=== PATIENT | female | born 1990 | race African-American/Black ===

== ENCOUNTER 2020-08-16 14:58 | Emergency (ER) | payer SELFPAY ==
[2020-08-16] MEDS ORDERED: Bupivacaine 0.25% HCL 30 ML VIAL ONE (16:57)
== END 2020-08-16 17:19 | disposition home or self-care (01) ==
LOC: CSHERS 14:58
DX: K02.9 Dental caries, unspecified (principal); F17.210 Nicotine dependence, cigarettes, uncomplicated
CPT/HCPCS: 64400; S0020

== ENCOUNTER 2021-04-26 18:27 | Emergency (ER) | payer SELFPAY ==
[2021-04-26] MEDS ORDERED: diphenhydrAMINE 50 MG/ML VIAL ONE (19:15)
[2021-04-26] MEDS ORDERED: Ketorolac Tromethamine 30 MG/ML VIAL ONE (19:15)
[2021-04-26] MEDS ORDERED: Metoclopramide HCl 10 MG/2 ML VIAL ONE (19:15)
[2021-04-26 19:28] LABS: Hemoglobin 12.1 g/dL (12.0-15.5); Mean Corpuscular HGB CONC 33.3 g/dL (32.0-36.0); Mean Corpuscular Hemoglobin 33.3 pg (27.0-33.0); Mean Platelet Volume 8.8 fl (7.4-10.4); Platelet Count 251 10x3/uL (150-450); RBC Distribution Width 11.5 % (11.5-14.5); Red Blood Cell (RBC) Count 3.63 10x6/uL (3.90-5.03); White Blood Cell (WBC) Count 5.6 10x3/uL (3.5-10.5)
[2021-04-26 19:35] LABS: BHCG - Serum Negative (NEGATIVE); Pregs Control Background? CLEAR/WHITE (CLR/WHITE); Pregs Control Bar Appear? YES (CONTROL BAR)
[2021-04-26 19:41] LABS: ALT (SGPT) 8 U/L (8-55); AST (SGOT) 17 U/L (5-34); Albumin 4.2 g/dL (3.5-5.0); Alkaline Phosphatase 54 U/L (40-110); Anion Gap 11 mmol/L (10-20); BUN (Urea Nitrogen) 11 mg/dL (7.0-18.7); Bilirubin, Total 0.3 mg/dL (0.2-1.2); Calc. Creatinine Clearance 0 mL/min (70-130); Calcium 9.3 mg/dL (7.8-10.44); Carbon Dioxide 25 mmol/L (22-29); Chloride 105 mmol/L (98-107); Glucose 88 mg/dL (70-105); Potassium 3.7 mmol/L (3.5-5.1); Protein, Total 7.2 g/dL (6.0-8.3); Sodium 137 mmol/L (136-145)
[2021-04-26 19:50] LABS: Band 4 % (5-11); Eosinophils 3 % (0-10); Lymphocytes 38 % (21-51); Monocytes 8 % (0-10); Reactive Lymphocytes 10 % (0-10)
[2021-04-26 19:51] LABS: Neutrophil 36 % (42-75)
[2021-04-26 19:52] LABS: Large Platelets SLIGHT; Platelet Morphology Comment Appears Adequate; RBC Morphology Normal
[2021-04-26 19:54] LABS: SARS-CoV-2 NAA Rapid Test Not Detected (NotDetected)
== END 2021-04-26 21:07 | disposition home or self-care (01) ==
LOC: CSHERS 18:27
DX: R51.9 Headache, unspecified (principal); Z20.822 Contact with and (suspected) exposure to COVID-19; F17.210 Nicotine dependence, cigarettes, uncomplicated
CPT/HCPCS: 0240U; 70450; 80053; 84703; 85025; 96365; 96375; J1200; J1885; J2765